=== PATIENT | male | born 1985 | race African-American/Black ===

== ENCOUNTER 2021-09-12 09:15 | Outpatient (CLI) | payer MEDICAID, SELFPAY ==
[2021-09-12 13:16] LABS: Chloride* 103 mmol/L (96-114); Sodium* 137 mmol/L (135-149)
[2021-09-12 13:17] LABS: Potassium* 4.5 mmol/L (3.6-5.1)
[2021-09-12 13:19] LABS: Carbon Dioxide* 26 mmol/L (20-32); Cholesterol* 163 mg/dL (90-199); Creatinine* 1.1 mg/dL (0.5-1.5); Estimated Glomerular Filt Rate 89 ml/min
[2021-09-12 13:20] LABS: Blood Urea Nitrogen* 23 mg/dL (5-24); Glucose* 93 mg/dL (60-115); HDL Cholesterol* 36 mg/dL (>=40); LDL Cholesterol Calculated 115 mg/dL (<100); Triglycerides* 58 mg/dL (40-149)
[2021-09-14 04:14] LABS: Sex Hormone Binding Globulin 23 nmol/L (17-56); Testosterone, Adult Male 268 ng/dL (300-1080); Testosterone, Free Calculation 57 pg/mL (47-244); Testosterone, Percentage Free 2.1 % (1.6-2.9)
== END 2021-09-12 09:16 | disposition home or self-care (01) ==
PROVIDERS: PCP Family Medicine; Visit Provider Family Medicine
DX: Z00.00 Encounter for general adult medical examination without abnormal findings (principal); R53.83 Other fatigue; R68.82 Decreased libido
CPT/HCPCS: 80048; 80061; 84270; 84402; 84403; 84443

== ENCOUNTER 2022-04-08 09:39 | Outpatient (CLI) | payer MEDICAID, SELFPAY ==
[2022-04-08 15:10] LABS: Albumin* 4.2 g/dL (3.3-5.0)
[2022-04-08 15:13] LABS: Total Protein* 7.1 g/dL (6.0-8.3)
[2022-04-08 15:14] LABS: Alanine Aminotransferase* 44 U/L (4-50); Alkaline Phosphatase* 80 U/L (40-150); Aspartate Amino Transferase* 46 U/L (12-35); Bilirubin Direct* 0.1 mg/dL (0.0-0.5); Bilirubin Total* 0.7 mg/dL (0.1-1.5)
[2022-04-10 02:50] LABS: Sex Hormone Binding Globulin 27 nmol/L (17-56); Testosterone, Adult Male 376 ng/dL (300-1080); Testosterone, Free Calculation 76 pg/mL (47-244)
== END 2022-04-08 09:40 | disposition home or self-care (01) ==
PROVIDERS: PCP Family Medicine; Visit Provider Family Medicine
DX: R79.89 Other specified abnormal findings of blood chemistry (principal)
CPT/HCPCS: 80076; 84270; 84402; 84403